=== PATIENT | female | born 1990 | race Two or more races ===

== ENCOUNTER 2023-01-10 18:05 | Inpatient (IN) | payer MEDICAID ==
[~2023-01-10] VITALS: Ht 173 cm; Wt 68.0 kg
[2023-01-10] MEDS ORDERED: LACTATED RINGER'S 1,000 ML IV ONE (19:15)
[2023-01-10] MEDS ORDERED: ACETAMINOPHEN 500 MG TAB PO ONE (19:15)
[2023-01-10 19:42] LABS: Basophils # (auto) 0 10 ^3/uL (0-0.2); Basophils % (auto) 0.4 % (0.0-2.0); Eosinophils # (auto) 0.3 10 ^3/uL (0-0.8); Eosinophils % (auto) 2.3 % (0.0-7.0); Hematocrit 32.9 % (36.0-46.0); Hemoglobin 10.9 g/dL (12.2-16.2); Mean Corpuscular Hemoglobin 27.4 pg (28.0-32.0); Mean Corpuscular Hgb Conc. 33.1 g/dL (32.0-36.0); Mean Corpuscular Volume 82.9 fL (80.0-100.0); Monocytes # (auto) 0.8 10 ^3/uL (0-1.3); Monocytes % (auto) 7.3 % (0.0-12.0); Neutrophils # (auto) 8.9 10 ^3/uL (1.6-8.6); Red Blood Cells 3.96 10^6/uL (4.0-5.20); Red Cell Distribution Width 14.1 % (11.8-14.3)
[2023-01-10 19:49] LABS: Urine Bacteria FEW /hpf (None Seen); Urine Blood TRACE /uL (Negative); Urine Clarity HAZY (Clear); Urine Color Yellow (Yellow); Urine Mucus FEW (None Seen); Urine Protein, UAD TRACE (Negative); Urine Urobilinogen Normal (Negative); Urine WBC 43 /hpf (0 - 5)
[2023-01-10 20:01] LABS: INR 1.01 (0.9-1.15); Partial Thromboplastin Time 29.6 SEC (24.5-34.5); Prothrombin Time 10.6 sec (9.3-11.8)
[2023-01-10 20:10] LABS: COVID19 ANTIGEN SOFIA FIA NEGATIVE (NEGATIVE)
[2023-01-10 20:11] LABS: Alanine Aminotransferase 17 U/L (7-40); Albumin 3.7 g/dL (3.2-4.8); Alkaline Phosphatase 177 U/L (46-116); Anion Gap 8.6 (5-15); Aspartate Aminotransferase 15 U/L (13-40); Bilirubin, Total 0.7 mg/dL (0.2-1.0); Calcium 8.5 mg/dL (8.7-10.4); Carbon Dioxide 21.4 mmol/L (20-30); Chloride 103 mmol/L (98-107); Glucose 81 mg/dL (74-106); Potassium 3.7 mmol/L (3.5-5.1); Sodium 133 mmol/L (136-145); Total Protein 5.9 g/dL (5.7-8.2)
[2023-01-10 20:11] LABS: Rapid Influenza A Negative (Negative); Rapid Influenza B Negative (Negative)
[2023-01-10 20:12] LABS: BUN/Creatinine Ratio 8.2 (10.0-20.0); Blood Urea Nitrogen < 5 mg/dL (9-23)
[2023-01-10] MEDS: LACTATED RINGER'S 1,000 ML IV SCH (20:41)
[2023-01-10] MEDS ORDERED: ceFAZolin 2 GM/D5W100ml 100 ML IV ONE (22:00)
[2023-01-10] MEDS ORDERED: CLINDAMYCIN 900MG IV 50 ML IV SCH (23:00)
[2023-01-10] MEDS: TERBUTALINE SULFATE 1 MG/ML 1ML VIAL SC SCH (23:34)
[2023-01-11] MEDS: CLINDAMYCIN 600MG IV 50 ML IV SCH ×2 (00:15→13:46)
[2023-01-11] MEDS: TERBUTALINE SULFATE 1 MG/ML 1ML VIAL SC SCH ×2 (00:15→02:06)
[2023-01-11] MEDS ORDERED: levoFLOXacin 500MG 100 ML IV SCH ×2 (02:30→02:36)
[2023-01-11] MEDS ORDERED: levoFLOXacin 500MG 100 ML IV ONE (02:47)
[2023-01-11] MEDS: NIFEdipine 10 MG CAP PO SCH ×5 (02:56→18:00)
[2023-01-11] MEDS: ACETAMINOPHEN 325 MG TAB PO PRN ×2 (03:42→08:28)
[2023-01-11 04:42] VITALS: TEMP 99.2
[2023-01-11] MEDS: LACTATED RINGER'S 1,000 ML IV SCH ×3 (06:17→19:15)
[2023-01-11] MEDS ORDERED: BETAMETHASONE ACET (30mg/5ml) 5ml Vial 6mg/ml IM ONE (10:00)
[2023-01-11] MEDS ORDERED: NIF10C PO (19:38)
[2023-01-11] MEDS ORDERED: LEVO500T91 PO (19:40)
== END 2023-01-11 20:33 | disposition left against medical advice (07) | DRG 566 ==
LOC: LDRP 18:05 → OBSVTOIN 18:05
PROVIDERS: ADMIT Obstetrics & Gynecology; ATTEND Obstetrics & Gynecology
DX: O23.03 Infections of kidney in pregnancy, third trimester (principal); Z20.822 Contact with and (suspected) exposure to COVID-19; N12 Tubulo-interstitial nephritis, not specified as acute or chronic; Z53.29 Procedure and treatment not carried out because of patient's decision for other reasons; Z3A.36 36 weeks gestation of pregnancy; Z88.0 Allergy status to penicillin
CPT/HCPCS: 36415; 59025; 76818; 80053; 81001; 82948; 85025; 85610; 85730; 86850; 86900; 86901; 87426; 87804; 94760; 96360; 96361; 96372; G0378; J1956; J3490

== ENCOUNTER 2023-01-12 09:50 | Observation (INO) | payer MEDICAID ==
[~2023-01-12 09:50] MED LIST: LEVO500T91 PO; NIF10C PO
[2023-01-12] MEDS ORDERED: BETAMETHASONE ACET (30mg/5ml) 5ml Vial 6mg/ml IM ONE (10:15)
== END 2023-01-12 10:48 | disposition home or self-care (01) ==
LOC: LDRP 09:50
PROVIDERS: ADMIT Obstetrics & Gynecology; ATTEND Obstetrics & Gynecology
DX: O60.03 Preterm labor without delivery, third trimester (principal); O26.893 Other specified pregnancy related conditions, third trimester; R51.9 Headache, unspecified; R50.9 Fever, unspecified; O62.9 Abnormality of forces of labor, unspecified; Z3A.36 36 weeks gestation of pregnancy; Z88.0 Allergy status to penicillin
CPT/HCPCS: 59025; 81002; 96372; G0378; J0702

== ENCOUNTER 2023-01-31 04:06 | Inpatient (IN) | payer MEDICAID ==
[2023-01-29 10:38] LABS: Basophils # (auto) 0.1 10 ^3/uL (0-0.2); Hemoglobin 12.3 g/dL (12.2-16.2); Monocytes # (auto) 0.6 10 ^3/uL (0-1.3)
[2023-01-29 10:40] LABS: Basophils % (auto) 0.8 % (0.0-2.0); Eosinophils # (auto) 0.5 10 ^3/uL (0-0.8); Hematocrit 37.8 % (36.0-46.0); Lymphocytes # (auto) 1.9 10 ^3/uL (0.4-5.4); Lymphocytes % (auto) 20.7 % (10.0-50.0); Mean Corpuscular Hemoglobin 26.5 pg (28.0-32.0); Mean Corpuscular Hgb Conc. 32.5 g/dL (32.0-36.0); Mean Corpuscular Volume 81.6 fL (80.0-100.0); Monocytes % (auto) 7.2 % (0.0-12.0); Neutrophils # (auto) 5.9 10 ^3/uL (1.6-8.6); Neutrophils % (auto) 65.3 % (37.0-80.0); Red Blood Cells 4.63 10^6/uL (4.0-5.20); Red Cell Distribution Width 14.9 % (11.8-14.3)
[2023-01-29 10:52] LABS: INR 0.99 (0.9-1.15); Partial Thromboplastin Time 28.5 SEC (24.5-34.5); Prothrombin Time 10.4 sec (9.3-11.8)
[2023-01-29 10:55] LABS: Alanine Aminotransferase 11 U/L (7-40); Albumin 4.4 g/dL (3.2-4.8); Alkaline Phosphatase 215 U/L (46-116); Anion Gap 6 (5-15); Aspartate Aminotransferase 13 U/L (13-40); Bilirubin, Total 0.6 mg/dL (0.2-1.0); Calcium 8.9 mg/dL (8.7-10.4); Carbon Dioxide 24 mmol/L (20-30); Chloride 107 mmol/L (98-107); Glucose 78 mg/dL (74-106); Potassium 3.9 mmol/L (3.5-5.1); Sodium 137 mmol/L (136-145); Total Protein 6.8 g/dL (5.7-8.2)
[2023-01-29 11:37] LABS: BUN/Creatinine Ratio 9.1 (10.0-20.0); Blood Urea Nitrogen < 5 mg/dL (9-23)
[2023-01-29 11:48] LABS: Urine Bacteria NONE SEEN /hpf (None Seen); Urine Blood Negative /uL (Negative); Urine Clarity Clear (Clear); Urine Color Yellow (Yellow); Urine Mucus FEW (None Seen); Urine Protein, UAD Negative (Negative); Urine Specific Gravity 1.015 (1.001-1.035); Urine Urobilinogen Normal (Negative); Urine WBC 1 /hpf (0 - 5)
[2023-01-29 13:11] LABS: Amphetamine Screen, Urine Neg (NEGATIVE); Benzodiazephine Screen, Urine Neg (NEGATIVE)
[2023-01-29 13:12] LABS: Barbiturate Scree,Urine Neg (NEGATIVE); Cannabinoid Screen, Urine Neg (NEGATIVE); Cocaine Screen, Urine Neg (NEGATIVE); Opiate Scree,Urine Neg (NEGATIVE); Phencyclidine Screen, Urine Neg (NEGATIVE)
[2023-01-30 06:07] LABS: RPR Non Reactive (Non Reactive)
[~2023-01-31] VITALS: Ht 30.5 cm; Wt 0.5 kg
[2023-01-31] VITALS (14 sets, daily range): BP systolic 102–114; BP diastolic 57–74; PULSE 63–90; RESP 16–18; TEMP 98.2–98.8; O2SAT 95–100
[2023-01-31] MEDS ORDERED: LACTATED RINGER'S 1,000 ML IV ONE (04:30)
[2023-01-31] MEDS ORDERED: LACTATED RINGER'S 1,000 ML IV SCH (04:30)
[2023-01-31] MEDS ORDERED: ONDANSETRON HCL 4 MG/2 ML VIAL ONE (06:38)
[2023-01-31] MEDS ORDERED: DexAMETHasone SOD PHOS 10MG/1ML VIAL INJ ONE (06:38)
[2023-01-31] MEDS ORDERED: oxyTOCIN 10 UNIT/ML 10ML VIAL ONE (06:38)
[2023-01-31] MEDS ORDERED: fentaNYL CITRATE 100 MCG/2 ML VL ONE (06:40)
[2023-01-31] MEDS ORDERED: MORPHINE SULF PF 5 MG/10 ML VIAL ONE (06:40)
[2023-01-31] MEDS ORDERED: ceFAZolin 2 GM/D5W100ml 100 ML IV ONE (07:06)
[2023-01-31] MEDS ORDERED: DOCU-94 PO (07:09)
[2023-01-31] MEDS ORDERED: IBUP-1456 PO (07:09)
[2023-01-31] MEDS ORDERED: HYDR-4902 PO (07:09)
[2023-01-31] MEDS ORDERED: GUM (CHEWING) 1 GUM CHEW CHEW ONE (07:15)
[2023-01-31] MEDS ORDERED: LACT. RINGERS/OXYTOCIN 20UNITS 1,000 ML IV ONE (07:15)
[2023-01-31] MEDS ORDERED: ceFAZolin 1GM/50ML 50 ML IV SCH (07:15)
[2023-01-31] MEDS ORDERED: ONDANSETRON HCL 4 MG/2 ML VIAL IV PRN ×2 (07:15→08:30)
[2023-01-31] MEDS ORDERED: CARBOPROST TROMETHAMINE 250 MCG/1ML VIAL IM ONE (07:36)
[2023-01-31] MEDS ORDERED: PROPOFOL 10 MG/ML 20 ML IV ONE (07:41)
[2023-01-31] MEDS ORDERED: NALBUPHINE HCL 10 MG/1ml INJECTION IM ONE (08:30)
[2023-01-31] MEDS ORDERED: diphenhdrAMINE HCL 50 MG/1 ML VL IV PRN (08:30)
[2023-01-31] MEDS ORDERED: HYDROmorphone HCL 2 MG/ML VL/or syr IV PRN (08:30)
[2023-01-31] MEDS ORDERED: NALOXONE HCL 0.4 MG/ML VIAL IV PRN (08:30)
[2023-01-31] MEDS ORDERED: ACETAMINOPHEN IV 1000 MG/100ML (10MG/ML) IV PRN (10:15)
[2023-01-31] MEDS: ceFAZolin 1GM/50ML 50 ML IV SCH (16:57)
[2023-01-31 20:05] LABS: Treponema pallidum Ab (FTA-Ab) Non Reactive (Non Reactive)
[2023-01-31 21:45] LABS: Basophils # (auto) 0 10 ^3/uL (0-0.2); Basophils % (auto) 0.1 % (0.0-2.0); Eosinophils # (auto) 0 10 ^3/uL (0-0.8); Eosinophils % (auto) 0.1 % (0.0-7.0); Hemoglobin 10.7 g/dL (12.2-16.2); Lymphocytes # (auto) 1.4 10 ^3/uL (0.4-5.4); Mean Corpuscular Volume 80.7 fL (80.0-100.0); Monocytes # (auto) 0.7 10 ^3/uL (0-1.3)
[2023-01-31 21:46] LABS: Hematocrit 32.7 % (36.0-46.0); Lymphocytes % (auto) 10.2 % (10.0-50.0); Mean Corpuscular Hemoglobin 26.5 pg (28.0-32.0); Mean Corpuscular Hgb Conc. 32.8 g/dL (32.0-36.0); Monocytes % (auto) 5.1 % (0.0-12.0); Neutrophils # (auto) 11.9 10 ^3/uL (1.6-8.6); Neutrophils % (auto) 84.5 % (37.0-80.0); Red Blood Cells 4.05 10^6/uL (4.0-5.20); Red Cell Distribution Width 14.7 % (11.8-14.3); White Blood Cell 14.1 10^3/uL (4.4-10.8)
[2023-02-01] VITALS (11 sets, daily range): BP systolic 101–124; BP diastolic 57–79; PULSE 62–89; RESP 16–18; TEMP 98.2–98.9; O2SAT 93–96
[2023-02-01] MEDS: ceFAZolin 1GM/50ML 50 ML IV SCH ×2 (00:58→08:57)
[2023-02-01 06:32] LABS: Basophils # (auto) 0.1 10 ^3/uL (0-0.2); Eosinophils # (auto) 0.2 10 ^3/uL (0-0.8); Hemoglobin 10.8 g/dL (12.2-16.2); Mean Corpuscular Volume 80.8 fL (80.0-100.0)
[2023-02-01 06:36] LABS: Basophils % (auto) 0.4 % (0.0-2.0); Eosinophils % (auto) 1.3 % (0.0-7.0); Hematocrit 32.5 % (36.0-46.0); Lymphocytes # (auto) 2.3 10 ^3/uL (0.4-5.4); Mean Corpuscular Hemoglobin 26.7 pg (28.0-32.0); Mean Corpuscular Hgb Conc. 33.1 g/dL (32.0-36.0); Monocytes # (auto) 0.9 10 ^3/uL (0-1.3); Monocytes % (auto) 6.3 % (0.0-12.0); Neutrophils # (auto) 10.3 10 ^3/uL (1.6-8.6); Nucleated Red Blood Cells % 0.1 %; Red Blood Cells 4.03 10^6/uL (4.0-5.20); Red Cell Distribution Width 14.7 % (11.8-14.3); White Blood Cell 13.7 10^3/uL (4.4-10.8)
[2023-02-01] MEDS ORDERED: ACETAMINOPHEN IV 1000 MG/100ML (10MG/ML) IV STA (07:00)
[2023-02-01] MEDS ORDERED: ACETAMINOPHEN IV 100 ML IV ONE (07:16)
[2023-02-01] MEDS ORDERED: BISACODYL 10 MG RECT SUPP PR PRN (08:45)
[2023-02-01] MEDS ORDERED: HYDROcodone-ACET 5/325MG TAB PO PRN (08:45)
[2023-02-01] MEDS ORDERED: IBUPROFEN 800 MG TAB PO PRN (08:45)
[2023-02-01] MEDS: DOCUSATE SOD 100 MG CAP PO SCH ×2 (09:59→21:39)
[2023-02-01] MEDS: DOCUSATE CALCIUM 240 MG CAP PO SCH (09:59)
[2023-02-01] MEDS: HYDROcodone-ACET 5/325MG TAB PO PRN ×3 (12:02→21:11)
[2023-02-01] MEDS: SIMETHICONE 80 MG CHEWABLE TABLET PO SCH ×2 (18:00→21:39)
[2023-02-02] MEDS: HYDROcodone-ACET 5/325MG TAB PO PRN ×2 (01:12→07:26)
[2023-02-02 02:45] VITALS: BP 120/78; PULSE 71; RESP 16; TEMP 98.4
[2023-02-02] MEDS: SIMETHICONE 80 MG CHEWABLE TABLET PO SCH ×2 (05:39→12:11)
[2023-02-02 07:00] VITALS: BP 114/84; PULSE 68; RESP 16; TEMP 98
[2023-02-02] MEDS: DOCUSATE CALCIUM 240 MG CAP PO SCH (10:12)
[2023-02-02] MEDS: DOCUSATE SOD 100 MG CAP PO SCH (10:12)
[2023-02-02 11:01] VITALS: BP 133/85; PULSE 73; RESP 16; TEMP 98.2
[2023-02-02] MEDS: ACETAMINOPHEN 325 MG TAB PO PRN ×2 (12:11→15:54)
[2023-02-02 15:00] VITALS: BP 128/85; PULSE 69; RESP 16; TEMP 98
== END 2023-02-02 18:02 | disposition home or self-care (01) | DRG 539 ==
LOC: LDRP 04:06
PROVIDERS: ADMIT Obstetrics & Gynecology; ATTEND Obstetrics & Gynecology
PROC: 10D00Z1 Extraction of Products of Conception, Low, Open Approach (ICD-10-PCS; 2023-01-31)
PROC: 0UB70ZZ Excision of Bilateral Fallopian Tubes, Open Approach (ICD-10-PCS; principal; 2023-01-31 07:13)
DX: O34.211 Maternal care for low transverse scar from previous cesarean delivery (principal); R71.0 Precipitous drop in hematocrit; Z30.2 Encounter for sterilization; Z37.0 Single live birth; Z3A.39 39 weeks gestation of pregnancy
CPT/HCPCS: 36415; 59025; 80053; 80307; 81001; 81002; 85025; 85610; 85730; 86592; 86850; 86900; 86901; 94760; 94762; 96360; 96361; 96366; G0378; J0131; J0690; J1100; J2405; J2590; J2704

== ENCOUNTER 2023-02-04 11:35 | Emergency (ER) | payer MEDICAID, OTHER ==
[~2023-02-04] VITALS: Ht 172.7 cm; Wt 71.0 kg
[~2023-02-04 11:35] MED LIST changes: +DOCU-94 PO; +HYDR-4902 PO; +IBUP-1456 PO
[2023-02-04 12:16] LABS: Nucleated Red Blood Cells % 0.1 %
[2023-02-04 12:31] LABS: Alanine Aminotransferase 17 U/L (7-40); Albumin 4.2 g/dL (3.2-4.8); Alkaline Phosphatase 154 U/L (46-116); Anion Gap 5 (5-15); Aspartate Aminotransferase 17 U/L (13-40); BUN/Creatinine Ratio 8.8 (10.0-20.0); Bilirubin, Total 0.6 mg/dL (0.2-1.0); Blood Urea Nitrogen 5 mg/dL (9-23); Calcium 9.2 mg/dL (8.7-10.4); Carbon Dioxide 27 mmol/L (20-30); Chloride 105 mmol/L (98-107); Glucose 90 mg/dL (74-106); Potassium 3.9 mmol/L (3.5-5.1); Sodium 137 mmol/L (136-145)
[2023-02-04 12:32] LABS: Basophils # (auto) 0.1 10 ^3/uL (0-0.2); Basophils % (auto) 0.7 % (0.0-2.0); Eosinophils # (auto) 0.7 10 ^3/uL (0-0.8); Eosinophils % (auto) 9.5 % (0.0-7.0); Hematocrit 39.3 % (36.0-46.0); Hemoglobin 12.8 g/dL (12.2-16.2); Lymphocytes # (auto) 1.5 10 ^3/uL (0.4-5.4); Lymphocytes % (auto) 19.6 % (10.0-50.0); Mean Corpuscular Hemoglobin 26.3 pg (28.0-32.0); Mean Corpuscular Hgb Conc. 32.7 g/dL (32.0-36.0); Mean Corpuscular Volume 80.6 fL (80.0-100.0); Monocytes # (auto) 0.4 10 ^3/uL (0-1.3); Monocytes % (auto) 4.8 % (0.0-12.0); Neutrophils % (auto) 65.4 % (37.0-80.0); Red Blood Cells 4.87 10^6/uL (4.0-5.20); Red Cell Distribution Width 14.9 % (11.8-14.3); White Blood Cell 7.6 10^3/uL (4.4-10.8)
[2023-02-04 12:37] VITALS: PULSE 67; RESP 13; O2SAT 99
[2023-02-04 12:50] LABS: INR 1.01 (0.9-1.15); Partial Thromboplastin Time 28.9 SEC (24.5-34.5); Prothrombin Time 10.6 sec (9.3-11.8)
[2023-02-04 14:20] VITALS: BP 123/77; PULSE 74; RESP 14; TEMP 98.3; O2SAT 98
== END 2023-02-04 14:24 | disposition home or self-care (01) ==
LOC: ER 11:35 → EDUNIT# 11:35 → ER 14:24
DX: G97.1 Other reaction to spinal and lumbar puncture (principal); Z88.0 Allergy status to penicillin; Z88.6 Allergy status to analgesic agent; Z79.899 Other long term (current) drug therapy; Z98.890 Other specified postprocedural states
CPT/HCPCS: 36415; 80053; 85025; 85610; 85730; 86850; 86900; 86901